=== PATIENT | female | born 1975 | race Caucasian/White ===

== ENCOUNTER 2017-10-27 20:51 | Emergency (ER) | payer OTHER | END 2017-10-27 23:54 | disposition home or self-care (01) | LOC: ERS 20:51 | DX: E86.0 Dehydration (principal); G40.909 Epilepsy, unspecified, not intractable, without status epilepticus; F31.9 Bipolar disorder, unspecified; F41.9 Anxiety disorder, unspecified; F17.210 Nicotine dependence, cigarettes, uncomplicated | CPT/HCPCS: 99283 ==

== ENCOUNTER 2019-07-01 13:39 | Emergency (ER) | payer OTHER, SELFPAY ==
[2019-07-01] MEDS ORDERED: Ondansetron ODT 4 MG TAB ONE ×2 (14:14→14:15)
== END 2019-07-01 14:21 | disposition home or self-care (01) ==
LOC: ERS 13:39
DX: F19.10 Other psychoactive substance abuse, uncomplicated (principal); R11.2 Nausea with vomiting, unspecified; M79.7 Fibromyalgia; G62.9 Polyneuropathy, unspecified; G40.909 Epilepsy, unspecified, not intractable, without status epilepticus; F25.9 Schizoaffective disorder, unspecified; F31.9 Bipolar disorder, unspecified; F41.0 Panic disorder [episodic paroxysmal anxiety]; F17.210 Nicotine dependence, cigarettes, uncomplicated
CPT/HCPCS: 99284; Q0162

== ENCOUNTER 2019-08-06 15:51 | Emergency (ER) | payer MEDICAID, SELFPAY ==
[2019-08-06 16:30] LABS: #Basophils 0.1 thou/uL (0.0-0.2); #Eosinphils 0.2 thou/uL (0.0-0.7); #Lymphocytes 3.1 thou/uL (1.20-3.40); #Monocytes 0.5 thou/uL (0.11-0.59); #Neutrophils 4.7 thou/uL (1.40-6.50); %Basophils 0.8 % (0.0-1.0); %Eosinophils 2.7 % (0.0-10.0); %Lymphocytes 35.6 % (21.0-51.0); %Neutrophils 54.9 % (42.0-75.0); Hemoglobin 13.2 g/dL (12.0-16.0); Mean Corpuscular HGB CONC 33.7 g/dL (32.0-36.0); Mean Corpuscular Hemoglobin 31.4 pg (27.0-31.0); Mean Corpuscular Volume 93.3 fL (78.0-98.0); Mean Platelet Volume 7.9 fL (7.4-10.4); Platelet Count 329 thou/uL (130-400); RBC Distribution Width 14.3 % (11.5-14.5); White Blood Cell (WBC) Count 8.6 thou/uL (4.8-10.8)
[2019-08-06 16:38] LABS: BHCG - Serum Negative (NEGATIVE); Pregs Control Background? CLEAR/WHITE (CLR/WHITE); Pregs Control Bar Appear? YES (CONTROL BAR)
[2019-08-06 16:45] LABS: Acetaminophen Less than 6.0 mcg/mL (10.0-30.0); Alcohol 58 mg/dL (Less than 10); Salicylate Less than 8.0 mg/dL (15.0-30.0)
[2019-08-06 17:55] LABS: ALT (SGPT) 10 U/L (8-55); AST (SGOT) 20 U/L (5-34); Albumin 3.7 g/dL (3.5-5.0); Alkaline Phosphatase 57 U/L (40-110); Anion Gap 15 mmol/L (10-20); BUN (Urea Nitrogen) 5 mg/dL (7.0-18.7); Bilirubin, Total 0.3 mg/dL (0.2-1.2); Calc. Creatinine Clearance 0 mL/min (70-130); Calcium 8.5 mg/dL (7.8-10.44); Carbon Dioxide 20 mmol/L (22-29); Chloride 108 mmol/L (98-107); Estimated GFR-MDRD Greater than 90; Globulin 2.7 g/dL (2.4-3.5); Glucose 79 mg/dL (70-105); Protein, Total 6.4 g/dL (6.0-8.3); Sodium 140 mmol/L (136-145)
== END 2019-08-06 18:30 ==
LOC: ERS 15:51
DX: F23 Brief psychotic disorder (principal); E87.6 Hypokalemia; F17.210 Nicotine dependence, cigarettes, uncomplicated; F25.9 Schizoaffective disorder, unspecified; F41.0 Panic disorder [episodic paroxysmal anxiety]; F31.9 Bipolar disorder, unspecified; G62.9 Polyneuropathy, unspecified
CPT/HCPCS: 36415; 80053; 80307; 82550; 84443; 84703; 85025; 93005

== ENCOUNTER 2020-04-07 23:34 | Emergency (ER) | payer MEDICAID, OTHER | END 2020-04-08 00:24 | LOC: ERS 23:34 → EEVIPCON 23:34 → ERS 04-08 00:24 | DX: K04.7 Periapical abscess without sinus (principal); F25.9 Schizoaffective disorder, unspecified; F31.9 Bipolar disorder, unspecified; F41.9 Anxiety disorder, unspecified; Z87.891 Personal history of nicotine dependence; Z79.899 Other long term (current) drug therapy | CPT/HCPCS: 99283 ==

== ENCOUNTER 2020-10-22 09:00 | Emergency (ER) | payer OTHER, SELFPAY ==
[2020-10-22] MEDS ORDERED: Ketorolac Tromethamine 30 MG/ML VIAL ONE (09:29)
== END 2020-10-22 10:20 | disposition home or self-care (01) ==
LOC: ERS 09:00
DX: M79.671 Pain in right foot (principal); M79.672 Pain in left foot; J44.9 Chronic obstructive pulmonary disease, unspecified; F17.210 Nicotine dependence, cigarettes, uncomplicated; Z79.899 Other long term (current) drug therapy
CPT/HCPCS: 96372; 99281; J1885

== ENCOUNTER 2020-10-24 08:36 | Emergency (ER) | payer SELFPAY ==
[2020-10-24] MEDS ORDERED: Ibuprofen 200 MG TAB ONE (09:14)
== END 2020-10-24 10:10 | disposition home or self-care (01) ==
LOC: ERS 08:36
DX: M25.571 Pain in right ankle and joints of right foot (principal); M25.572 Pain in left ankle and joints of left foot; R00.0 Tachycardia, unspecified; M25.472 Effusion, left ankle; M25.471 Effusion, right ankle; G62.9 Polyneuropathy, unspecified; J44.9 Chronic obstructive pulmonary disease, unspecified; F17.210 Nicotine dependence, cigarettes, uncomplicated; Z79.899 Other long term (current) drug therapy
CPT/HCPCS: 99283